=== PATIENT | female | born 1990 | race Caucasian/White ===

== ENCOUNTER 2018-10-19 09:29 | Outpatient (CLI) | payer OTHER ==
[~2018-10-19] VITALS: Ht 172.7 cm; Wt 44.9 kg
[2018-10-19] MEDS ORDERED: LEXAPRO10 MG ORAL (14:19)
--- NOTE | 2018-10-19 15:00 | Consultation ---
DATE OF CONSULTATION: 10/19/2018 CONSULTING PHYSICIAN: Shimon Mendez M.D. CHIEF COMPLAINT: Dysphagia. HISTORY OF PRESENT ILLNESS: This is a 28-year-old female with complaint of dysphagia 2016. Initially started with having shortness of breath. Then started having choking. The patient said mainly it is difficulty with solid dysphagia, liquids going okay. She also complained of some weight loss. PAST MEDICAL HISTORY: Depression, anxiety. PAST SURGICAL HISTORY: None. MEDICATIONS: Lexapro. FAMILY HISTORY: Noncontributory. SOCIAL HISTORY: The patient denies any tobacco, alcohol, or drug abuse. ALLERGIES: No known drug allergies. PHYSICAL EXAMINATION: VITAL SIGNS: The patient is afebrile. Vital signs are stable. HEENT: Normocephalic and atraumatic. Sclerae anicteric. NECK: Supple. No evidence of lymphadenopathy. CARDIOVASCULAR: Regular rate and rhythm. Plus S1 and S2. No obvious murmur. LUNGS: Clear to auscultation bilaterally. ABDOMEN: Positive bowel sounds. Soft and nontender. No rebound. No guarding. No peritoneal sign. EXTREMITIES: No cyanosis, no clubbing, no edema. ASSESSMENT AND PLAN: This is a 28-year-old female with solid dysphagia. Apparently had a barium esophagram, which I do not have the report, but the patient's stated she had difficulty with motility. Plan will be to start the omeprazole 40 mg twice a day 30 minutes before lunch and dinner. The patient to be scheduled for endoscopy. If the endoscopy is negative and the patient does not respond to omeprazole, we recommend manometry. Shimon Mendez M.D. DR: KELLY JOB#: [id number] CC:
== END 2018-10-19 11:29 | disposition home or self-care (01) ==
LOC: PAN 09:29
DX: R13.10 Dysphagia, unspecified (principal); F32.9 Major depressive disorder, single episode, unspecified; F41.9 Anxiety disorder, unspecified; R63.4 Abnormal weight loss
CPT/HCPCS: 99202

== ENCOUNTER 2019-02-01 08:58 | Outpatient (CLI) | payer MEDICAID ==
[~2019-02-01 08:58] MED LIST: LEXAPRO10 MG ORAL
--- NOTE | 2019-02-01 10:08 | General Progress Note ---
Assessment/Plan Problem List: (1) GERD (gastroesophageal reflux disease) ICD Codes: K21.9 - Gastro-esophageal reflux disease without esophagitis SNOMED: 398533141 Assessment/Plan: s/p EGD HP neg gastritis plan ppi BID and baclofen RTC 2 months may need manometry Subjective ROS Limited/Unobtainable: Yes Allergies: Coded Allergies: No Known Allergies (Unverified , 10/19/18) Objective General Appearance: alert EENT: normal ENT inspection Neck: supple Cardiovascular: normal rate Respiratory/Chest: lungs clear Abdomen: normal bowel sounds, non tender, soft Shimon Mendez MD Feb 01, 2019 10:08
== END 2019-02-01 10:58 | disposition home or self-care (01) ==
LOC: PAN 08:58
DX: K21.9 Gastro-esophageal reflux disease without esophagitis (principal)
CPT/HCPCS: 99212

== ENCOUNTER 2019-05-31 09:31 | Outpatient (CLI) | payer MEDICAID ==
[~2019-05-31 09:31] MED LIST changes: +BACLOFEN10 MG ORAL; +OMEPRAZOLE40 M1 ORAL
--- NOTE | 2019-05-31 09:59 | General Progress Note ---
Assessment/Plan Assessment/Plan: Assessment/Plan Problems: (1) Esophageal dysmotility ICD Codes: K22.4 - Dyskinesia of esophagus SNOMED: 019761946 (2) GERD (gastroesophageal reflux disease) Assessment/Plan Negative EGD status post barium esophagram noted with esophageal dysmotility. Patient had stop omeprazole and baclofen for approximately 2 to 3 months States her reflux and symptoms have improved ? globus symptoms patient to fu with psych for anxiety resume omeprazole and baclofen consider manometry if needed Subjective ROS Limited/Unobtainable: Yes Allergies: Coded Allergies: No Known Allergies (Unverified , 10/19/18) Objective General Appearance: alert EENT: PERRL/EOMI Neck: supple Cardiovascular: normal rate Respiratory/Chest: lungs clear Abdomen: normal bowel sounds, non tender, soft Extremities: non-tender Shimon Mendez MD May 31, 2019 09:59
[2019-05-31 10:43] VITALS: BP 115/73
== END 2019-05-31 11:31 | disposition home or self-care (01) ==
LOC: PAN 09:31
DX: K22.4 Dyskinesia of esophagus (principal); K21.9 Gastro-esophageal reflux disease without esophagitis
CPT/HCPCS: 99212